=== PATIENT | female | born 1935 | race Caucasian/White ===

== ENCOUNTER 2023-11-22 00:43 | Outpatient (OUT) | payer MEDICARE, MEDICAID, SELFPAY ==
[2023-11-22 06:18] LABS: Basophils Absolute Auto 0.1 10^3/uL (0.0-0.1); Basophils Percent Auto 1.1 % (0.2-2.0); Eosinophils Absolute Auto 0.2 10^3/uL (0.0-0.7); Eosinophils Percent Auto 2.2 % (0.9-7.0); Hematocrit 42.6 % (36.0-48.0); Hemoglobin 13.9 g/dL (12.0-16.0); Immature Granulocytes Abs Auto 0.03 10^3/uL (0.00-0.03); Immature Granulocytes Pct Auto 0.4 % (0.0-0.5); Lymphocytes Percent Auto 23.5 % (20.5-60.0); Mean Corpuscular HGB Conc 32.6 g/dL (29.9-35.2); Mean Corpuscular Hemoglobin 27.9 pg (26.7-34.0); Mean Corpuscular Volume 85.5 fL (81.0-99.0); Mean Platelet Volume 9.7 fL (9.5-13.5); Monocytes Absolute Auto 0.6 10^3/uL (0.3-0.8); Monocytes Percent Auto 7.6 % (1.7-12.0); Neutrophils Absolute Auto 5.5 10^3/uL (1.4-6.5); Neutrophils Percent Auto 65.2 % (43.0-75.0); Platelet Count 268 10^3/uL (150-450); Red Blood Count 4.98 10^6/uL (4.20-5.40); Red Cell Distribution Width 13.6 % (11.0-15.0); White Blood Count 8.5 10^3/uL (4.0-11.0)
[2023-11-22 06:43] LABS: Alanine Aminotransferase 22 U/L (14-59); Albumin Level 3.6 g/dL (3.4-5.0); Alkaline Phosphatase 80 U/L (46-116); Anion Gap 12.4; Aspartate Amino Transferase 23 U/L (15-37); BUN Creatinine Ratio 20.9; Bilirubin Total 1.2 mg/dL (0.2-1.0); Calcium 9.3 mg/dL (8.5-10.1); Carbon Dioxide 31.8 mmol/L (21.0-32.0); Chloride 97 mmol/L (98-107); Chol HDL Ratio 2.7; Cholesterol 212 mg/dL (<=200); Estimated GFR (African America >60 (>=60); Estimated GFR (Non-African Ame >60 (>=60); Globulin 3.7 g/dL; Glucose 100 mg/dL (74-106); HDL Cholesterol 79 mg/dL (40-60); Potassium 3.2 mmol/L (3.5-5.1); Sodium 138 mmol/L (136-145); Total Protein 7.3 g/dL (6.4-8.2); Triglycerides 163 mg/dL (<=150); VLDL CHOLESTEROL 32.6 mg/dL
--- OUTSIDE RECORDS SUMMARY | 2023-12-15 10:40 | XMS_ITS | CCD ---
Author Organization [facility] Care Team Providers Care Brace End Mainspring Former Name Role Phone Aylinrance Bg ALBERT Primary Care Provider TAMEKA, BG Manning Attending Unavailable DEFRANCE, BG Manning Referring Unavailable DEFRANCE, BG Manning Primary Care Unavailable DEFRANCE, BG Manning Attending Unavailable DEFRANCE, BG Manning Referring Unavailable DEFRANCE, BG Manning Primary Care Unavailable CAITLYN, EHAD Attending Unavailable DEFRANCE, BG Manning Referring Unavailable DEFRANCE, BG Manning Primary Care Unavailable APLING, SARA B Attending Unavailable APLING, SARA Webb Referring Unavailable APLING, SARA Webb Referring Unavailable Allergies Allergy Classification Reported Allergen(s) Allergy Type Date of Onset Reaction(s) Facility (5 sources) Amoxicillin / Clavulanate; Translations: [AMOXICILLIN-PO T CLAVULANATE] Drug Allergy 8 [facility] (5 sources) Ciprofloxacin; Translations: [CIPROFLOXACIN] Drug Allergy 8 [facility] (5 sources) HMG-CoA reductase inhibitor; Translations: [IKXODQX-DPY-SL A REDUCTASE INHIBITORS] Propensity to adverse reactions to drug 8 [facility] (5 sources) Oxazepam; Translations: [OXAZEPAM] Drug Allergy 8 GI Disturbance, Dizziness, Headache [facility] Medications Current Medications Medication Drug Class(es) Dates Sig (Normalized) Sig (Original) acetaminophen 500 mg oral tablet (3 sources) take 1 tablet by mouth every six hours as needed for pain acetaminophen (TYLENOL EXTRA STRENGTH) 500 mg tablet Take 1 tablet (500 mg total) by mouth every 6 (six) hours as needed for pain. 0 Active ascorbate calcium/bioflavonoid (ТАТЬЯНА-C WITH BIOFLAVONOIDS ORAL) (3 sources) ascorbate calcium/bioflavonoid (ТАТЬЯНА-C WITH BIOFLAVONOIDS ORAL) Take by mouth. 0 Active chlorthalidone 25 mg oral tablet (3 sources) Thiazide-like Diuretic take 1 tablet by mouth once daily chlorthalidone (HYGROTON) 25 mg tablet Take 1 tablet (25 mg total) by mouth daily. 0 Active cloNIDine hydrochloride 0.2 mg oral tablet (3 sources) Central alpha-2 Adrenergic Agonist Start: 01-13-2023 take 1 tablet by mouth once daily in the morning cloNIDine (CATAPRES) 0.2 mg tablet take 1 tablet by mouth every morning and take 1 tablet at bedtime 180 tablet 1 01/13/2023 Active donepezil hydrochloride 5 mg oral tablet (3 sources) Start: 01-19-2023 take 1 tablet by mouth once daily donepeziL (ARICEPT) 5 mg tablet Take 1 tablet (5 mg total) by mouth nightly. 30 tablet 5 01/19/2023 Active dorzolamide 20 mg/ml / timolol 5 mg/ml ophthalmic solution (3 sources) Carbonic Anhydrase Inhibitor, beta-Adrenergic Remberto Start: 03-24-2022 dorzolamide-timoloL (COSOPT) 22.3-6.8 mg/mL ophthalmic solution escitalopram 10 mg oral tablet (3 sources) Serotonin Reuptake Inhibitor Start: 05-25-2023 take 1.5 tablets by mouth in the morning escitalopram (LEXAPRO) 10 mg tablet Take 1.5 tablets (15 mg total) by mouth in the morning. 0 05/25/2023 Active Start: 05-25-2023 escitalopram ( LEXAPRO) 10 mg tablet ezetimibe 10 mg oral tablet (3 sources) Dietary Cholesterol Absorption Inhibitor Start: 10-31-2022 take 1 tablet by mouth once daily in the morning ezetimibe (ZETIA) 10 mg tablet take 1 tablet by mouth every morning 90 tablet 1 10/31/2022 Active Melatonin (3 sources) melatonin 1 mg tablet,chewable Chew and swallow. 0 Active multivitamin/iron /folic acid (CENTRUM WOMEN ORAL) (3 sources) multivitamin/iro n /folic acid (CENTRUM WOMEN ORAL) Take by mouth. 0 Active netarsudil 0.2 mg/ml ophthalmic solution (3 sources) Rho Kinase Inhibitor Start: 07-29-2022 take 1 drop(s) into the eye(s) at bedtime RHOPRESSA 0.02 % drops instill 1 drop into right eye at bedtime 0 07/29/2022 Active travoprost 0.04 mg/ml ophthalmic solution (3 sources) Prostaglandin Analog Start: 08-01-2022 take 0.004 drop(s) into the eye(s) once daily travoprost (TRAVATAN-Z) 0.004 % drops instill 1 drop into both eyes nightly 0 08/01/2022 Active Problems Active Problems Problem Classification Problem Date Documented Da te Episodic/Chronic Anxiety disorders (4 sources) Generalized anxiety disorder; Translations: [Generalized anxiety disorder] Onset: 02-14-2023 02-14-2023 Chronic Delirium, dementia, and amnestic and other cognitive disorders (2 sources) Dementia associated with another disease; Translations: [Dementia associated with other underlying disease, with agitation, unspecified dementia severity ([facility] 08-08-2023 Chronic Disorders of lipid metabolism (7 sources) Pure hypercholesterolemi a; Translations: [Pure hypercholesterolemi a, unspecified] Onset: 04-24-2017 06-01-2023 Chronic Essential hypertension (7 sources) Benign essential hypertension; Translations: [Essential (primary) hypertension] Onset: 04-24-2017 06-01-2023 Chronic Other hereditary and degenerative nervous system conditions (6 sources) Mild cognitive impairment, so stated; Translations: [Mild cognitive impairment, so stated] Onset: 02-14-2023 06-01-2023 Chronic Other nervous system disorders (1 source) Anesthesia of skin; Translations: [Anesthesia of skin] Onset: 09-08-2023 Episodic Other nervous system disorders (1 source) Paresthesia of skin; Translations: [Paresthesia of skin] Onset: 09-08-2023 Episodic Other nutritional; endocrine; and metabolic disorders (3 sources) Hypomagnesemia; Translations: [Hypomagnesemia] Onset: 01-26-2023 01-26-2023 Chronic Regional enteritis and ulcerative colitis (10 sources) Crohn's disease of large bowel; Translations: [Crohn's disease of large intestine without complications] Onset: 10-22-2017 06-01-2023 Chronic Unclassified (1 source) Dementia in other diseases classified elsewhere, unspecified severity, with agitation; Translations: [Dementia in other diseases classified elsewhere, unspecified severity, with agitation] Onset: 08-31-2023 Past or Other Problems Problem Classification Problem Date Documented Da te Episodic/Chronic Fluid and electrolyte disorders (3 sources) Hypokalemia; Translations: [Hypokalemia] Onset: 01-25-2023 01-25-2023 Episodic Mood disorders (3 sources) Mood disorders Onset: 06-01-2023 Resolved: 08-31-2023 06-01-2023 Other nutritional; endocrine; and metabolic disorders (3 sources) Severe obesity; Translations: [Morbid (severe) obesity due to excess calories] Onset: 05-02-2019 Resolved: 12-03-2019 12-03-2019 Chronic Residual codes; unclassified (3 sources) Altered mental status; Translations: [Altered mental status, unspecified] Onset: 01-19-2023 01-25-2023 Episodic Residual codes; unclassified (3 sources) Disorientated; Translations: [Disorientation, unspecified] Onset: 01-25-2023 01-26-2023 Episodic Residual codes; unclassified (1 source) Disorientation, unspecified; Translations: [Disorientation, unspecified] Onset: 01-25-2023 Episodic Unclassified (3 sources) Onset: 02-14-2023 02-14-2023 Urinary tract infections (3 sources) Acute cystitis; Translations: [Acute cystitis without hematuria] Onset: 01-25-2023 01-26-2023 Episodic Vital Signs Date Time Vital Sign Value Performing Clinician Bruno carpio 08-31-2023 10:08-0400 Body height 157.5 cm Bg Rehman MD Work Phone: [facility] 08-31-2023 10:08-0400 Body mass index (BMI) [Ratio] 29.26 kg/m2 Bg Rehman MD Work Phone: [facility] 08-31-2023 10:08-0400 Body weight 72.58 kg Bg Rehman MD Work Phone: [facility] 08-31-2023 10:08-0400 Diastolic blood pressure 80 mm[Hg] Bg Rehman MD Work Phone: [facility] 08-31-2023 10:08-0400 Heart rate 72 /min Bg Rehman MD Work Phone: [facility] 08-31-2023 10:08-0400 Respiratory rate 16 /min Bg Rehman MD Work Phone: [facility] 08-31-2023 10:08-0400 Systolic blood pressure 120 mm[Hg] Bg Rehman MD Work Phone: [facility] 06-01-2023 10:03-0500 Body height 157.5 cm Bg Rehman MD Work Phone: [facility] 06-01-2023 10:03-0500 Body mass index (BMI) [Ratio] 28.99 kg/m2 Bg Rehman MD Work Phone: [facility] 06-01-2023 10:03-0500 Body weight 71.89 kg Bg Rehman MD Work Phone: [facility] 06-01-2023 10:03-0500 Diastolic blood pressure 84 mm[Hg] Bg Rehman MD Work Phone: [facility] 06-01-2023 10:03-0500 Heart rate 80 /min Bg Rehman MD Work Phone: [facility] 06-01-2023 10:03-0500 Respiratory rate 16 /min Bg Rehman MD Work Phone: [facility] 06-01-2023 10:03-0500 Systolic blood pressure 128 mm[Hg] Bg Rehman MD Work Phone: [facility] Encounters Encounter Date Encounter Type Care Provider Facility Start: 09-20-2023 End: 09-20-2023 ambulatory SARA B APLING Not Available Start: 09-08-2023 End: 09-08-2023 ambulatory CHENCHOAD CAITLYN [facility] Start: 08-31-2023 End: 08-31-2023 ambulatory BG REHMAN [facility] Start: 08-31-2023 End: 08-31-2023 Office outpatient visit 25 minutes Bg Rehman MD Work Phone: [facility] Comment on above: Essential hypertensi on, benign (Primary Dx); Pure hypercholesterolemia; Dementia associated with other underlying disease, with agitation, unspecified dementia severity (CMS-HCC); Crohn's disease of large intestine without complication (CMS-HCC) Start: 08-08-2023 Telephone encounter Anne-Marie Palencia MA [facility] Start: 06-01-2023 End: 06-01-2023 ambulatory BG REHMAN [facility] Start: 06-01-2023 End: 06-01-2023 Office outpatient visit 25 minutes Bg Rehman MD Work Phone: [facility] Comment on above: Essential hypertensi on, benign (Primary Dx); Pure hypercholesterolemia; Crohn's disease of large intestine without complication (CMS-HCC); Amnestic MCI (mild cognitive impairment with memory loss) Procedures Date Procedure Procedure Detail Performing Clinician Start: 09-08-2023 Follow-up visit Follow-up EHAD AF REEN Start: 08-31-2023 Follow-up visit Follow-up BG REHMAN Start: 08-31-2023 Adult depression screening assessment Bg Rehman MD Work Phone: Start: 06-01-2023 Adult depression screening assessment Bg Rehman MD Work Phone: Plan of Treatment Date Care Activity Detail Author Start: 08-30-2024 Adult BMI Screening Adult BMI Screen ing [facility] Start: 08-30-2024 Depression Screening Depression Scre ening [facility] Start: 08-30-2024 Fall Risk Screening Fall Risk Screen ing [facility] Start: 08-30-2024 Tobacco Screening Tobacco Screening [facility] Start: 06-01-2024 Adult BMI Screening Adult BMI Screen ing [facility] Start: 06-01-2024 Depression Screening Depression Scre ening [facility] Start: 06-01-2024 Fall Risk Screening Fall Risk Screen ing [facility] Start: 06-01-2024 Tobacco Screening Tobacco Screening [facility] Start: 02-15-2024 Adult BMI Follow Up Plan Adult BMI Follow Up Plan [facility] Start: 01-28-2024 Influenza vaccination Influenza Vacc ine [facility] Start: 12-15-2023 End: 12-15-2023 Patient encounter procedure 12/15/2023 2:00 PM EDT Office Visit [facility] [address] [place] [phone] Enrrique Holloway MD [address] [place] [address], [address] [place] [phone] [facility] Start: 12-08-2023 Medicare Annual Well ness Visit Medicare Annual Wellness Visit [facility] Start: 12-05-2023 End: 12-05-2023 Patient encounter procedure 12/05/2023 10:00 AM EDT Office Visit [facility] [address] [place] [phone] Bg Rehman MD [address] [place], [place] [id number] [facility] Start: 10-06-2023 End: 10-06-2023 Patient encounter procedure 10/06/2023 10:30 AM EDT Office Visit [facility] [address] [place] [phone] Enrrique Holloway MD [address] [place] [address], [address] [place] [phone] [facility] Start: 09-08-2023 End: 09-08-2023 Patient encounter procedure 09/08/2023 4:30 PM EDT Office Visit [facility] [address] [place] [phone] Enrrique Holloway MD [address] [place] [address], [address] [place] [phone] [facility] Start: 08-31-2023 End: 08-31-2023 Patient encounter procedure 08/31/2023 10:15 AM EDT Office Visit [facility] [address] [place] [address] Bg Rehman MD [address] [place] [address] [facility] Start: 01-27-2023 COVID-19 Vaccine ( season) COVID-19 Vaccine () [facility] Start: 01-27-2023 Influenza vaccination Influenza Vacc ine [facility] Start: 09-27-1954 DTaP,Tdap and Td Vaccines (1 - Tdap) DTaP,Tdap and Td Vaccines (1 - Tdap) [facility] Immunizations Immunization Date Immunization Notes Care Provider Fa cility 03-08-2022 Influenza, High-dose , Quadrivalent Bg Rehman MD Work Phone: [facility] 03-08-2022 zoster vaccine recombinant Bg Rehman MD Work Phone: [facility] 03-08-2022 influenza virus vacc ine, unspecified formulation Bg Rehman MD Work Phone: [facility] 03-03-2021 Influenza Vaccine, Quadrivalent, Adjuvanted Bg Rehman MD Work Phone: [facility] 03-03-2021 influenza virus vacc ine, unspecified formulation Bg Rehman MD Work Phone: [facility] 09-09-2020 zoster vaccine recombinant Bg Rehman MD Work Phone: [facility] 08-27-2020 COVID-19, mRNA, LNP- S, PF, 100mcg/0.5mL Dose Bg Rehman MD Work Phone: [facility] 07-30-2020 COVID-19, mRNA, LNP- S, PF, 100mcg/0.5mL Dose Bg Rehman MD Work Phone: [facility] 03-05-2020 Influenza Vaccine, Quadrivalent, Adjuvanted Bg Rehman MD Work Phone: [facility] 03-05-2020 Seasonal trivalent influenza vaccine, adjuvanted, preservative free Bg Rehman MD Work Phone: [facility] 03-02-2019 influenza virus vacc ine, unspecified formulation Bg Rehman MD Work Phone: [facility] 03-02-2019 influenza, high dose seasonal, preservative-free Bg Rehman MD Work Phone: [facility] 03-02-2019 zoster vaccine recombinant Bg Rehman MD Work Phone: [facility] 02-26-2018 influenza, injectabl e, quadrivalent, preservative free Bg Rehman MD Work Phone: [facility] 04-04-2017 influenza, injectabl e, quadrivalent, preservative free Bg Rehman MD Work Phone: [facility] 04-28-2016 pneumococcal polysaccharide vaccine, 23 valent Bg Rehman MD Work Phone: [facility] 02-29-2016 influenza, injectabl e, quadrivalent, preservative free Bg Rehman MD Work Phone: [facility] Payers Date Payer Category Payer Private Health Insurance [employer] [id number] 2021-Present [phone] [address] [place] [address] [id number] 2021 Unknown [id number] 2000 Medicare MEDICARE MEDICAR E PART A & B [id number] 2000-Present [phone] [address] [place] [address] [id number] 2000 Medicare [id number] 1935 Unknown [id number] 1935 Unknown [id number] 1935 Unknown [id number] 1935 Unknown [id number] 1935 Unknown [id number] 1935 Unknown [id number] Social History Date Type Detail Facility Start: 01-25-2023 Tobacco smoking stat [facility] Ex-smoker [facility] History of tobacco use Current smoker [facility] Start: 01-25-2023 Tobacco use and exposure Smokeless tobacco non-user [facility] Start: 06-01-2023 End: 08-31-2023 Alcohol intake Current non-drinker of alcohol (finding) [facility] Start: 07-09-2020 End: 06-01-2023 History of Social function [facility] Start: 07-09-2020 End: 06-01-2023 Tobacco use panel [facility] How hard is it for y ou to pay for the very basics like food, housing, medical care, and heating Not very hard [facility] Adolescent depressio n screening assessment 11 [facility] Start: 01-25-2023 Tobacco Comment Stated I smo ke only for a couple of weeks [facility] Start: 1935 Sex Assigned At Female P [facility] Start: 01-25-2023 Gender identity Identifies as female gender (finding) [facility] Start: 01-25-2023 Sexual orientation Heterosexual (oli baron) [facility] Goals Date Patient Goal Desired Activity /State Personal health goal Comment on above: Formatting of this n ote might be different from the original. Evaluation of progress towards goal: DC transition to SNF for rehab. Clinical Notes 06-01-2023 to 08-31-2023 Bg Rehman MD - 08/31/2023 10:15 AM EDTTelephone Encounter - Anne-Marie Abreu CMA - 08/08/2023 9:23 AM EDTTelephone Encounter - Bg Rehman MD - 08/08/2023 9:23 AM EDT Note Date & Type Note Facility 08-31-2023 History of Present illness Narrative Images from the original note were not included. [id number] [facility] [address] SUBJECTIVE: Patient ID: Aline Bolden is a 87 y.o. female. 87 yo WF upset emotionally, reports no blood in bowels, pt is in [facility] assisted living , they give her the meds, using wheeled walker, reports poor memory and fatigued The following portions of the patient's history were reviewed and updated as appropriate: allergies, current medications, past family history, past medical history, past social history, past surgical history and problem list. REVIEW OF SYSTEMS: Review of Systems Constitutional: Positive for fatigue. Respiratory: Negative. Cardiovascular: Negative. Gastrointestinal: Negative. Genitourinary: Negative. Neurological: Poor memmory PHYSICAL EXAMINATION: Vitals: 08/31/23 1008 BP: 120/80 BP Site: Left Arm BP Postition: Sitting BP CUFF SIZE: M (9-13 inches) Pulse: 72 Resp: 16 Weight: 72.6 kg (160 lb) Height: 157.5 cm (5' 2 ) Physical Exam Vitals and nursing note reviewed. Constitutional: Appearance: Normal appearance. HENT: Head: Normocephalic and atraumatic. Eyes: Extraocular Movements: Extraocular movements intact. Pupils: Pupils are equal, round, and reactive to light. Cardiovascular: Rate and Rhythm: Normal rate and regular rhythm. Pulses: Normal pulses. Heart sounds: Normal heart sounds. Pulmonary: Effort: Pulmonary effort is normal. Breath sounds: Normal breath sounds. Skin: General: Skin is warm and dry. Neurological: General: No focal deficit present. Mental Status: She is alert and oriented to person, place, and time. Psychiatric: Mood and Affect: Mood normal. Behavior: Behavior normal. ASSESSMENT/PLAN: Aline was seen today for follow-up. Diagnoses and all orders for this visit: Essential hypertension, benign Pure hypercholesterolemia Dementia associated with other underlying disease, with agitation, unspecified dementia severity (CMS-HCC) Crohn's disease of large intestine without complication (CMS-HCC) Follow-up: Recheck in6m documented in this encounter [facility] 08-08-2023 Miscellaneous Notes Son asking if you have any recommendation for psychiatrist for patient to help deal with her dementia. Please inform son that we usually have dementia pts see neurology I hope she is f/u with them and we can recommend Dr Stafford phone # [phone], referral in place, please arrange Son notified. documented in this encounter [facility] 08-08-2023 Telephone encounter Note Son asking if you have any recommendation for psychiatrist for patient to help deal with her dementia. [facility] 08-08-2023 Telephone encounter Note Please inform son that we usually have dementia pts see neurology I hope she is f/u with them and we can recommend Dr Stafford phone # [phone], referral in place, please arrange [facility] 08-08-2023 Telephone encounter Note Son notified. [facility] 06-01-2023 History of Present illness Narrative Images from the original note were not included. [address] [address] SUBJECTIVE: Patient ID: Aline Bolden is a 87 y.o. female. 87 yo WF with memory concerns and is in assisted living and is trying to adjust, pt has some abdominal cramping and some LLQ abdominal pain, no blood in bowels- has h/o colitis The following portions of the patient's history were reviewed and updated as appropriate: allergies, current medications, past family history, past medical history, past social history, past surgical history and problem list. REVIEW OF SYSTEMS: Review of Systems Gastrointestinal: Positive for abdominal pain. Psychiatric/Behavioral: Positive for confusion. PHYSICAL EXAMINATION: Vitals: 06/01/23 1003 BP: 128/84 BP Site: Left Arm BP Postition: Sitting BP CUFF SIZE: M (9-13 inches) Pulse: 80 Resp: 16 Weight: 71.9 kg (158 lb 8 oz) Height: 157.5 cm (5' 2 ) Physical Exam Vitals and nursing note reviewed. Constitutional: Appearance: Normal appearance. HENT: Head: Normocephalic and atraumatic. Eyes: Extraocular Movements: Extraocular movements intact. Pupils: Pupils are equal, round, and reactive to light. Cardiovascular: Rate and Rhythm: Normal rate and regular rhythm. Pulses: Normal pulses. Heart sounds: Normal heart sounds. Pulmonary: Effort: Pulmonary effort is normal. Breath sounds: Normal breath sounds. Skin: General: Skin is warm and dry. Neurological: General: No focal deficit present. Mental Status: She is alert and oriented to person, place, and time. Psychiatric: Mood and Affect: Mood normal. Behavior: Behavior normal. ASSESSMENT/PLAN: Aline was seen today for follow-up. Diagnoses and all orders for this visit: Essential hypertension, benign Pure hypercholesterolemia Crohn's disease of large intestine without complication (CMS-HCC) Amnestic MCI (mild cognitive impairment with memory loss) Follow-up: Discussion with son and pt about pt's condition and living conditions Will recheck in 3m Discussed with son and pt that CT abd/pelvis can be done at any documented in this encounter [facility] Evaluation note Diagnosis Essential hypertension, benign- Primary Pure hypercholesterolemia Crohn's disease of large intestine without complication (CMS-HCC) Amnestic MCI (mild cognitive impairment with memory loss) Mild cognitive impairment, so stated [facility]* Diagnosis Dementia associated with other underlying disease, with agitation, unspecified dementia severity ([facility] Diagnosis Essential hypertension, benign- Primary Pure hypercholesterolemia Dementia associated with other underlying disease, with agitation, unspecified dementia severity ([facility]) Crohn's disease of large intestine without complication ([facility]) [facility]* Attachments The following attachments cannot be sent through Care Everywhere. * Mild cognitive impairment ([place]) [facility]Not on file documented [facility]* Attachments The following attachments cannot be sent through Care Everywhere. * Crohn disease in adults ([place]) [facility] (narrative)* Consultation (Routine) - Authorized Specialty Diagnoses / Procedures Referred By Neeraj manning Referred To Contact Psychiatry Diagnoses Dementia associated with other underlying disease, with agitation, unspecified dementia severity ([facility]) Bg Rehman MD [address] [place] [id number] Sloan Stafford MD [address] [place] [id number] Referral ID Status Reason Start Date Expiration Date Visits Requested Visits Authorized [id number] Authorized Specialty Services Required 08/08/2023 08/07/2024 1 1 [facility] Advance Directives No Advanced Directives Records FoundDocuments on File Type Date Recorded Patient Station Superintendent Expl anation Living Will 12/03/2019 9:37 AM LIVING WILL 06/01/07 Latest Code Status on File Code Status Date Activated Date Inactivated Comments Full Code 01/25/2023 4:08 PM 01/27/2023 6:15 PM Code Status History Code Status Date Activated Date Inactivated Comments DNR Comfort Care Arrest (DNR-CCA) [place] 10/23/2017 2:14 PM 10/24/2017 4:46 PM Documents on File Type Date Recorded Patient Station Superintendent Expl anation DNR Physician Order 07/27/2023 10:58 AM DN R 07/14/23 Living Will 12/03/2019 9:37 AM LIVING WILL 06/01/07 Latest Code Status on File Code Status Date Activated Date Inactivated Comments DNR Comfort Care (DNRCC) [place] 07/27/2023 10:57 AM This order was creat ed through External Result Entry Code Status History Code Status Date Activated Date Inactivated Comments Full Code 01/25/2023 4:08 PM 01/27/2023 6:15 PM DNR Comfort Care Arrest (DNR-CCA) [place] 10/23/2017 2:14 PM 10/24/2017 4:46 PM Documents on File Type Date Recorded Patient Station Superintendent Expl anation DNR Physician Order 07/27/2023 10:58 AM DN R 07/14/23 Living Will 12/03/2019 9:37 AM LIVING WILL 06/01/07 Latest Code Status on File Code Status Date Activated Date Inactivated Comments DNR Comfort Care (DNRCC) [place] 07/27/2023 10:57 AM This order was creat ed through External Result Entry Code Status History Code Status Date Activated Date Inactivated Comments Full Code 01/25/2023 4:08 PM 01/27/2023 6:15 PM DNR Comfort Care Arrest (DNR-CCA) [place] 10/23/2017 2:14 PM 10/24/2017 4:46 PM Summary Purpose Family History No Family History Records FoundNo Family History Records FoundNo Family History Records Found Additional Source Comments Reason for Visit (unrecogniz ed section and content) Reason Comments Follow-up Care Teams (unrecognized sec tion and content) [employer] Former Relationship Specialty Start Date End Date Bg Rehman MD [address] [place] [address] PCP - General Family Medicine 10/17/16 [employer] Former Relationship Specialty Start Date End Date Bg Rehman MD [address] [place] [address] PCP - General Family Medicine 10/17/16 [employer] Former Relationship Specialty Start Date End Date Bg Rehman MD [address] [place] [address] PCP - General Family Medicine 10/17/16 INFORMATION SOURCE (unrecogn ized section and content) DATE CREATED AUTHOR 09/01/2023 [facility] DATE CREATED AUTHOR AUTHOR'S ORGANIZ ATION 09/10/2023 [facility] DATE CREATED AUTHOR AUTHOR'S ORGANIZ ATION 09/22/2023 [facility] FOR RECORDS PERTAINING TO PATIENTS WHO ARE OR HAVE BEEN ENROLLED IN A CHEMICAL DEPENDENCY/SUBSTANCEABUSE PROGRAM, SOME INFORMATION MAY BE OMITTED. This clinical summary was aggregated from multiple sources. Caution should be exercised in using it in the provision of clinical care. This summary normalizes information from multiple sources, and as a consequence, information in this document may materially change the coding, format and clinical context of patient data. In addition, data may be omitted in some cases. CLINICAL DECISIONS SHOULD BE BASED ON THE PRIMARY CLINICAL RECORDS. [facility] [employer] [facility]. provides no warranty or guarantee of the accuracy or completeness of information in this document.
== END 2023-11-22 00:44 | disposition home or self-care (01) ==
PROVIDERS: PCP Family Medicine; Visit Provider Nurse Practitioner Adult Health
DX: I10 Essential (primary) hypertension (principal); E78.5 Hyperlipidemia, unspecified; K50.10 Crohn's disease of large intestine without complications
CPT/HCPCS: 36415; 80053; 80061; 85025

== ENCOUNTER 2023-11-27 00:47 | Outpatient (REF) | payer MEDICARE, MEDICAID, SELFPAY ==
[2023-11-27 07:35] LABS: Anion Gap 10.8; Calcium 9.4 mg/dL (8.5-10.1); Carbon Dioxide 32.9 mmol/L (21.0-32.0); Chloride 100 mmol/L (98-107); Estimated GFR (African America >60 (>=60); Estimated GFR (Non-African Ame >60 (>=60); Glucose 104 mg/dL (74-106); Potassium 3.7 mmol/L (3.5-5.1); Sodium 140 mmol/L (136-145)
== END 2023-11-27 00:48 | disposition home or self-care (01) ==
LOC: LAB 00:47
PROVIDERS: PCP Family Medicine; Visit Provider Nurse Practitioner Adult Health
DX: E87.6 Hypokalemia (principal)
CPT/HCPCS: 36415; 80048